=== PATIENT | male | born 1965 ===

== ENCOUNTER 2020-07-25 06:33 | Day surgery (SDC) | payer OTHER ==
[~2020-07-25 06:33] MED LIST: DIOVAN320 MG PO; METFOR PO
[2020-07-25] MEDS ORDERED: DUI500 PO (13:04)
[2020-07-25] MEDS ORDERED: PERCOCET 5-3251 EACH PO (13:04)
[2020-07-25] MEDS ORDERED: ASA325 M1 PO (13:04)
== END 2020-07-25 15:20 | disposition home or self-care (01) ==
LOC: CIR.AMB 06:33
PROVIDERS: ATTEND Orthopaedic Surgery
DX: M67.461 Ganglion, right knee (principal); Z20.822 Contact with and (suspected) exposure to COVID-19